=== PATIENT | male | born 1950 | race African-American/Black ===

== ENCOUNTER 2021-07-06 05:20 | Day surgery (SDC) | payer MEDICARE, OTHER ==
[~2021-07-06] VITALS: Ht 172.7 cm; Wt 85.0 kg
[2021-07-06] VITALS (10 sets, daily range): BP systolic 114–152; BP diastolic 58–83; PULSE 55–78; TEMP 97.4–98.9
[~2021-07-06 05:20] MED LIST: ATACAND32 MG PO; CELEBREX 200MG200 MG PO; DARVOCET-N-101 UDTAB PO; HYDROCHLOR50 MG PO; LIPITOR40 MG PO; PRILOSEC 20MG20 MG PO; PRINVIL PO; [UNRECOGNIZED DRUG - CODE] PO
[2021-07-06] MEDS ORDERED: COZAAR100 MG PO (05:49)
[2021-07-06] MEDS ORDERED: THE MEDICINE S200 M2 PO (05:49)
[2021-07-06] MEDS ORDERED: HYGROTON 2525 MG/TAB PO (05:50)
[2021-07-06] MEDS ORDERED: TAZTIA180 PO (05:51)
[2021-07-06] MEDS ORDERED: CRESTOR20 MG PO (05:51)
[2021-07-06] MEDS ORDERED: PRILOTC PO (05:51)
[2021-07-06] MEDS ORDERED: XALATAN EYE DROPS OD (05:52)
--- NOTE | 2021-07-06 12:05 | NUR ---
PATIENT IS ORIENTED BUT DROWSY POST OP. PATIENT WAS HAVING LOTS OF BLADDER SPASMS IN PACU AND MEDS WERE GIVEN. PATIENT REPORTS SPASMS ARE BETTER AT THIS TIME. NEGRON TO DD WITH SMALL AMOUNTS OF RED-TINGED URINE. IV FLUIDS INFUSING VIA PUMP INTO LEFT HAND. NO C/O N/V. LIQUIDS PROVIDED AT BEDSIDE. HEAD TO TOE ASSESSMENT COMPLETE. SCD'S TO BLE. ORIENTED TO ROOM. CALL LIGHT IN REACH. AT BEDSIDE.
--- NOTE | 2021-07-06 16:00 | NUR ---
PATIENT DOING WELL. NO C/O PAIN, BLADDER SPASMS OR NAUSEA. PATIENT NOW AMBULATING IN HALLWAYS. TOLERATING ACTIVITY WELL.
--- NOTE | 2021-07-07 00:58 | NUR ---
PATIENT ALERT AND ORIENTED. WAS AT BEDSIDE START OF SHIFT. PATIENT AMBULATED STANDBY ASSIST ALL THE WAY DOWN THE [place]. HS MEDS PER EMAR. NEGRON TO DD WITH TEA COLORED DRAINAGE. IVF INFUSING TO L HAND IV. CURRENTLY IN BED, CALL LIGHT IN REACH.
[2021-07-07 04:11] VITALS: BP 131/56; PULSE 67; TEMP 98.4
[2021-07-07 05:54] LABS: HEMATOCRIT 33.6 % (42.0-52.0); HEMOGLOBIN 11.2 g/dl (13.5-18.0)
[2021-07-07 06:11] LABS: CALCIUM 8.1 mg/dL (8.4-10.2); CREATININE, serum 1.25 mg/dL (0.72-1.25); POTASSIUM 4.1 mmol/L (3.5-4.5)
[2021-07-07 08:29] VITALS: BP 138/56; PULSE 66; TEMP 98.8
--- NOTE | 2021-07-07 09:22 | NUR ---
Initial visit; Patient thanked Pole Cutter for looking in on him and offering prayer and God's blessings.
--- NOTE | 2021-07-07 09:28 | NUR ---
PATIENT ALERT AND ORIENTED X4. TOOK MORNING MEDICATIONS WELL. NEGRON IN PLACE. LAP SITES [place]. PATIENT DENIES PAIN. NO NEW CONCERNS.
[2021-07-07 11:36] VITALS: BP 130/59; PULSE 68; TEMP 98.8
--- NOTE | 2021-07-07 12:02 | NUR ---
edge worker met with patient to complete intake and discuss discharge plan. Patient lives at home with his Nova ([phone]). Nova present at bedside. Patient reports to being fully independent with his ADL's and does not utilize any DME to assist with mobility. Patient has no home oxygen needs. He utilizes [facility] on [address] for PCP and medication needs. Patient states that he does have a [employer] estbalished listing his Nova as his agent. Patient is planning on returning home once medically ready with no concerns. Discharge plan: Home with spouse.
== END 2021-07-07 15:17 | disposition home or self-care (01) ==
LOC: SDCO 05:20 → SURG 07:30 → SDCO 07:30 → EDSTATUS 07:30 → SURG 12:20 → SDCO 07-07 15:17
PROVIDERS: Urology
DX: C61 Malignant neoplasm of prostate (principal); I10 Essential (primary) hypertension; E11.9 Type 2 diabetes mellitus without complications; K21.9 Gastro-esophageal reflux disease without esophagitis; Z79.899 Other long term (current) drug therapy
CPT/HCPCS: OP; A4314; A9284; J0690; J1100; J1170; J1885; J2405; J2704; J3010; J7120